=== PATIENT | male | born 1950 | race Caucasian/White ===

== ENCOUNTER 2017-11-01 05:18 | Inpatient (IN) | payer BC, OTHER, SELFPAY ==
[2017-11-01] MEDS ORDERED: LEVALBUTEROL 1.25 MG/3 ML NEB ONE (05:44)
[2017-11-01] MEDS ORDERED: NA CHLORIDE 0.9% 1,000 ML ONE ×2 (05:44→08:32)
[2017-11-01 06:14] LABS: Absolute Lymphocytes (CBC) 0.6 K/uL (0.7-4.9); Absolute Monocytes 1.6 K/uL (0.1-1.3); Absolute Neutrophil 17.3 K/uL (1.8-8.0); Basophils % 0.1 % (0-1.3); Eosinophils % 0.1 % (0-4.4); Hematocrit 46.6 % (39.6-49.0); Lymphocytes % 3.1 % (15.3-44.8); MCH 31.2 pg (27.0-35.0); MCV 95.3 fL (80-100); RBC Red Blood Cell Count 4.89 M/uL (4.33-5.43)
[2017-11-01] MEDS ORDERED: IBUPROFEN 400 MG TAB ONE (06:16)
[2017-11-01 06:31] LABS: BUN Blood Urea Nitrogen 22 mg/dL (7-18); Bicarbonate 23 mmol/L (21-32); CKMB Creatine Kinase MB 4.2 ng/mL (0.3-3.6); Creatine Phosphokinase 615 U/L (39-308); Glucose Level 232 mg/dL (74-106); NT PRO-BNP 1029 pg/mL (<125); Potassium 3.5 mmol/L (3.5-5.1); Sodium Level 139 mmol/L (136-145)
--- NOTE | 2017-11-01 06:33 | ER ---
Nurse's Notes [facility] Name: Hector Burgos Age: 67 yrs Sex: Male : 1950 Arrival Date: 11/01/2017 Time: 05:23 Bed 15 Private MD: Diagnosis: Streptococcal pharyngitis;Pneumonia;Hyperglycemia, unspecified;Sepsis Presentation: 11/01 05:23 Presenting complaint: EMS states: "Patient started feeling dizzy, leaning over the bs1 sink, patient fell and was found on the floor upon arrival, patient denies any LOC or hitting his head, EKG ST 170's, oxygen saturation 90% on room air, temp 104.0.". Transition of care: patient was not received from another setting of care. Onset of symptoms was October 31, 2017. Risk Assessment: Do you want to hurt yourself or someone else? Patient reports no desire to harm self or others. Initial Sepsis Screen: Does the patient meet any 2 criteria? RR > 20 per min. Temp <36.0*C (96.8*F)) or > 38.3*C (100.4*F). HR > 90 bpm. Yes Does the patient have a suspected source of infection? Yes: Skin breakdown/wound. Care prior to arrival: Medication(s) given: Tylenol, 1000 mg, Glucose check: 300 EKG- Sinus Tachycardia. 05:30 Method Of Arrival: EMS: [facility] bs1 05:30 Acuity: JEFF 2 bs1 Historical: - Allergies: 05:36 No Known Allergies; bs1 - Home Meds: 05:36 Niacin Oral [Active]; Lisinopril Oral [Active]; bs1 - PMHx: 05:36 High Cholesterol; Hypertension; prediabetic; bs1 - PSHx: 05:36 None; bs1 - Immunization history:: Adult Immunizations up to date. - Social history:: Smoking status: Patient/guardian denies using tobacco. - Ebola Screening: : Patient negative for fever greater than or equal to 101.5 degrees Fahrenheit, and additional compatible Ebola Virus Disease symptoms Patient denies exposure to infectious person. - Family history:: not pertinent. - Hospitalizations: : No recent hospitalization is reported. Screenin:24 Abuse screen: Denies threats or abuse. Denies injuries from another. Nutritional bs1 screening: No deficits noted. Tuberculosis screening: No symptoms or risk factors identified. Fall Risk None identified. Assessment: 05:25 General: Appears in no apparent distress. uncomfortable, obese, Behavior is calm, bs1 cooperative, appropriate for age, Reports chills for 0-12 hours, fever for 0-12 hours, feeling ill for 0-12 hours. Pain: Denies pain. Neuro: Level of Consciousness is awake, alert, obeys commands, Facial symmetry appears normal, Reports dizziness. 05:25 Cardiovascular: Denies chest pain, Heart tones S1 S2 present Capillary refill < 3 bs1 seconds Patient's skin is warm and dry. Respiratory: Reports shortness of breath at rest on exertion patient states "I feel like its hard to get a deep breath in." Airway is patent Trachea midline Respiratory effort is labored, Respiratory pattern is tachypnea Breath sounds with wheezes bilaterally. GI: No signs and/or symptoms were reported involving the gastrointestinal system. : No signs and/or symptoms were reported regarding the genitourinary system. EENT: No signs and/or symptoms were reported regarding the EENT system. Derm: Derm: bilateral lower legs dry, tight, scaly, red, swollen. Patients left lower leg, skin tears noted. Musculoskeletal: Circulation, motion, and sensation intact. Capillary refill < 3 seconds. 05:30 Reassessment: Administered 3L NC, patients oxygen saturation 88% on room air. bs1 06:30 Reassessment: Patient and/or family updated on plan of care and expected duration. Pain bs1 level reassessed. Patient is alert, oriented x 3, equal unlabored respirations, skin warm/dry/pink. Pending admission to hospital. Dr Vides at bedside, informed patient that he has strep/pneumonia. Patient denies pain at this time. 07:00 General: Appears in no apparent distress. uncomfortable, obese, Behavior is calm, hj cooperative, appropriate for age, Reports feeling ill for 0-12 hours. Pain: Denies pain. Neuro: Level of Consciousness is awake, alert, obeys commands, Facial symmetry appears normal, Reports dizziness. Cardiovascular: Denies chest pain, Heart tones S1 S2 present Capillary refill < 3 seconds Patient's skin is warm and dry. Respiratory: Reports shortness of breath at rest on exertion. GI: Abdomen is obese, Bowel sounds present X 4 quads. Abd is soft and non tender. : No signs and/or symptoms were reported regarding the genitourinary system. EENT: No signs and/or symptoms were reported regarding the EENT system. Derm: bilateral leg dry, tight, scaly, red and swollen;. Musculoskeletal: Circulation, motion, and sensation intact. Capillary refill < 3 seconds. 07:05 Reassessment: Informed hospitalist Dr Ladd that patients lactate is 4.9. Inquired on bs1 fluid resucitation. Dr Ladd to put in another order for NS 1L. Patient currently has an order for a total of 1.5L NS. Patient to get a total of 2.5L NS then maintenance fluids instead of the full 30ml/kg . Patient BNP elevated. Will continue to watch for fluid overload. Report given to HUGO Saenz. informed Dany of current orders. Sepsis sheet initiated. 07:22 Reassessment: documentation on meditech, pt on ER hold, pending ICU placement; hj reinforced pt urine sample, told him we need to straight cath or vogt to get urine sample, per MD order, cant start antibiotics without urine sample; reinforced to pt;. Vital Signs: 05:24 BP 104 / 66; Pulse 122; Resp 25; Pulse Ox 88% on R/A; bs1 05:30 BP 115 / 55; Pulse 122; Resp 24; Temp 102(O); Pulse Ox 92% on 3 lpm NC; Weight 154.22 bs1 kg; Height 5 ft. 11 in. (180.34 cm); Pain 0/10; 05:45 BP 114 / 49; Pulse 118; Resp 26; Pulse Ox 95% on 3 lpm NC; bs1 06:00 BP 111 / 55; Pulse 116; Pulse Ox 94% on 2 lpm NC; bs1 06:30 BP 87 / 60; Pulse 107; Resp 23; Pulse Ox 95% on 3 lpm NC; bs1 06:40 BP 105 / 55; Pulse 102; Resp 24 S; Pulse Ox 96% on 3 lpm NC; bs1 07:00 BP 106 / 57; Pulse 98; Resp 20; Temp 98.8(O); Pulse Ox 98% on 3 lpm NC; Pain 0/10; hj 05:30 Body Mass Index 47.42 (154.22 kg, 180.34 cm) bs1 ED Course: 05:23 Patient arrived in ED. lp1 05:30 Sparkle Fields, RN is Primary Nurse. bs1 05:34 Triage completed. bs1 05:35 Tip Vides MD is Attending Physician. rn 05:55 Initial lab(s) drawn, by me, sent to lab. Maintain EMS IV. Dressing intact. Good blood lp1 return noted. Site clean \\T\\ dry. Gauge \\T\\ site: 20g R AC. 06:00 Inserted saline lock: 22 gauge in left wrist, using aseptic technique. Blood collected. bs1 by me. Flushed with 10cc. tolerated well. 06:15 First set of blood cultures drawn by me, Second set of blood cultures drawn Strep swab bs1 sent to lab. 06:24 Patient has correct armband on for positive identification. Placed in gown. Bed in low bs1 position. Call light in reach. Side rails up X 1. spring up supervisor on. Pulse ox on. NIBP on. 06:25 Arm band placed on left wrist. EKG completed in triage. Results shown to MD. bs1 06:32 Júnior Ladd DO is Hospitalizing Provider. rn 07:04 CT Chest Wo Con In Process Unspecified. EDMS 07:12 CT completed. Patient tolerated procedure well. Patient moved back from CT. kw1 07:25 Chest Single View XRAY In Process Unspecified. EDMS 13:30 EKG done, by lead slot technician. reviewed by Natanael Goodrich MD. at1 21:57 No provider procedures requiring assistance completed. Patient admitted, IV remains in bs1 place. intact. Administered Medications: 05:45 CANCELLED (Duplicate Order): Tylenol 650 mg PO once rn 05:55 Drug: Xopenex 1.25 mg Route: Inhalation; bs1 05:55 Drug: NS 0.9% 1000 ml Route: IV; Rate: 1000 ml; Site: right antecubital; bs1 08:30 Follow up: IV Status: Completed infusion hj 06:13 Not Given (Informed Dr Vides that patient got 1gm tylenol at 0500, verbal order to give bs1 ibuprofen 800mg po x1.): Tylenol 1000 mg PO once 06:17 Drug: Ibuprofen 800 mg Route: PO; bs1 07:12 Follow up: Response: No adverse reaction bs1 06:57 Not Given (Duplicate Order): Rocephin - (cefTRIAXone) 1 grams IVPB once over 30 mins; rn (mix in 50 mL NS) 06:57 Not Given (Duplicate Order): Zithromax 500 mg IVPB once over 1 hrs; mix in 250 mL NS rn 07:30 Drug: NS 0.9% 500 ml Route: IV; Rate: bolus; Site: left hand; hj 09:27 Follow up: IV Status: Completed infusion hj 07:30 Drug: LevaQUIN 750 mg Volume: 150 ml; Route: IVPB; Infused Over: 90 mins; Site: left hj hand; 09:26 Follow up: IV Status: Completed infusion hj 09:15 Drug: vancoMYCIN 1 grams Route: IVPB; Infused Over: 2 hrs; Site: right wrist; hj 09:27 Follow up: IV Status: Infusion continued Point of Care Testing: Blood Glucose: 06:06 Blood Glucose: 209 mg/dL; bs1 Ranges: Outcome: 06:33 Decision to Hospitalize by Provider. rn 21:57 Admitted to ICU accompanied by nurse, accompanied by tech, via wheelchair, room ICU bs1 8, with oxygen, on monitor, with chart, Report called to HUGO Diaz 21:57 Condition: stable 21:57 Instructed on the need for admit, Demonstrated understanding of instructions. 21:59 Patient left the ED. bs1 Signatures: Dispatcher [employer] EDMS Tip Vides MD MD rn Pena, Laura RN RN lp1 Pia Tinoco, otolaryngology teacher EKG Tat1 Dany Harris RN RN hj Wilhelm, Kimberly kw1 Sparkle Fields RN RN bs1 Corrections: (The following items were deleted from the chart) :19 05:30 Presenting complaint: EMS states: "Patient started feeling dizzy, leaning over bs1 the sink, patient fell and was found on the floor upon arrival, patient denies any LOC or hitting his head, EKG ST 170's, oxygen saturation 90% on room air, temp 104.0." bs1 :19 05:30 Transition of care: patient was not received from another setting of care. bs1 bs1 :19 05:30 Onset of symptoms was October 31, 2017 bs bs 05:30 Risk Assessment: Do you want to hurt yourself or someone else? Patient reports no bs1 desire to harm self or others. bs1 06: 05:30 Initial Sepsis Screen: Does the patient meet any 2 criteria? RR > 20 per min. bs1 Temp <36.0*C (96.8*F)) or > 38.3*C (100.4*F). HR > 90 bpm. Yes Does the patient have a suspected source of infection? Yes: Skin breakdown/wound bs1 06: 05:30 Care prior to arrival: Medication(s) given: Tylenol, 1000 mg, Glucose check: 300 bs1 EKG- Sinus Tachycardia bs1 07: 07:05 Reassessment: Informed hospitalist Dr Ladd that patients lactate is 4.9. bs1 Inquired on fluid resucitation. Dr Ladd to put in another order for NS 1L. Patient currently has an order for a total of 1.5L NS. Patient to get a total of 2.5L NS then maintenance fluids instead of the full 30ml/kg . Patient BNP elevated. Will continue to watch for fluid overload. Report given to HUGO Saenz. informed Dany of current orders. bs1 07: 07:00 BP 106 / 57; Pulse 98bpm; Resp 20bpm; Pulse Ox 98% 3 lpm Nasal Cannula; Pain hj 0/10; hj
--- NOTE | 2017-11-01 06:33 | EDPHYS ---
Physician Documentation [facility] Name: Hector Burgos Age: 67 yrs Sex: Male : 1950 Arrival Date: 11/01/2017 Time: 05:23 Bed 15 Private MD: ED Physician Tip Vides HPI: 11/01 05:38 This 67 yrs old Male presents to ER via EMS with complaints of weakness, rn fever, sob. 05:38 The patient has shortness of breath at rest, with light activity. Onset: The rn symptoms/episode began/occurred 2 day(s) ago. Duration: The symptoms are intermittent. The patient's shortness of breath is aggravated by exertion, light activity, supine position, talking, walking. Severity of symptoms: At their worst the symptoms were moderate in the emergency department the symptoms are unchanged. The patient has not experienced similar symptoms in the past. The patient has not recently seen a physician. Reports fever, weakness, sob, cough that began 2 days ago, got worse this AM, got up to go to work, felt lightheaded and fell to ground, no LOC, did not hit head, reports several months of progressive dyspnea, glucose in 300s, no acute skin changes, + chronic skin changes and intermittent edema of legs.. Historical: - Allergies: 05:36 No Known Allergies; bs1 - Home Meds: 05:36 Niacin Oral [Active]; Lisinopril Oral [Active]; bs1 - PMHx: 05:36 High Cholesterol; Hypertension; prediabetic; bs1 - PSHx: 05:36 None; bs1 - Immunization history:: Adult Immunizations up to date. - Social history:: Smoking status: Patient/guardian denies using tobacco. - Ebola Screening: : Patient negative for fever greater than or equal to 101.5 degrees Fahrenheit, and additional compatible Ebola Virus Disease symptoms Patient denies exposure to infectious person. - Family history:: not pertinent. - Hospitalizations: : No recent hospitalization is reported. ROS: 05:41 Constitutional: + fever and chills Eyes: Negative for injury, pain, redness, and manager furniture, ENT: Negative for injury, pain, and discharge, Neck: Negative for injury, pain, and swelling, Cardiovascular: Negative for chest pain, Respiratory: + cough/sob Abdomen/GI: Negative for abdominal pain, nausea, vomiting, diarrhea, and constipation, Back: Negative for injury and pain, MS/Extremity: Negative for injury and deformity, Skin: no acute skin changes Neuro: + generalized weakness, no headache Exam: 05:41 Constitutional: Overweight male, smiling and no acute distress, mild tachypnea rn Head/Face: Normocephalic, atraumatic. Eyes: Pupils equal round and reactive to light, extra-ocular motions intact. Lids and lashes normal. Conjunctiva and sclera are non-icteric and not injected. Cornea within normal limits. Periorbital areas with no swelling, redness, or edema. ENT: dry MM, no stridor Neck: Trachea midline, no thyromegaly or masses palpated, and no cervical lymphadenopathy. Supple, full range of motion without nuchal rigidity, or vertebral point tenderness. No Meningismus. Cardiovascular: tachycardic, regular, no murmur Respiratory: + mild tachypnea with diminished breath sounds at bases, no wheezing, no retractions Abdomen/GI: soft, non-tender Skin: warm, dry, + chronic brawny edema and discoloration of bilateral lower extremities, no signs of cellulitis MS/ Extremity: Pulses equal, no cyanosis. Neurovascular intact. Full, normal range of motion. LLE > circumference than RLE (patient states baseline). Neuro: Awake and alert, GCS 15, oriented to person, place, time, and situation. Cranial nerves II-XII grossly intact. Motor strength 5/5 in all extremities. Sensory grossly intact. Vital Signs: 05:24 BP 104 / 66; Pulse 122; Resp 25; Pulse Ox 88% on R/A; bs1 05:30 BP 115 / 55; Pulse 122; Resp 24; Temp 102(O); Pulse Ox 92% on 3 lpm NC; Weight 154.22 bs1 kg; Height 5 ft. 11 in. (180.34 cm); Pain 0/10; 05:45 BP 114 / 49; Pulse 118; Resp 26; Pulse Ox 95% on 3 lpm NC; bs1 06:00 BP 111 / 55; Pulse 116; Pulse Ox 94% on 2 lpm NC; bs1 06:30 BP 87 / 60; Pulse 107; Resp 23; Pulse Ox 95% on 3 lpm NC; bs1 06:40 BP 105 / 55; Pulse 102; Resp 24 S; Pulse Ox 96% on 3 lpm NC; bs1 07:00 BP 106 / 57; Pulse 98; Resp 20; Temp 98.8(O); Pulse Ox 98% on 3 lpm NC; Pain 0/10; hj 05:30 Body Mass Index 47.42 (154.22 kg, 180.34 cm) bs1 MDM: 05:35 Patient medically screened. rn 06:30 Differential diagnosis: Anemia Anxiety Reaction Bronchitis CHF exacerbation, Myocardial rn Infarction pneumonia, pulmonary edema, reactive airway disease, Sepsis. Data reviewed: vital signs, nurses notes, lab test result(s), EKG, radiologic studies, plain films, and as a result, I will admit patient. Counseling: I had a detailed discussion with the patient and/or guardian regarding: the historical points, exam findings, and any diagnostic results supporting the discharge/admit diagnosis, lab results, radiology results, the need for further work-up and treatment in the hospital. Response to treatment: the patient's symptoms have mildly improved after treatment, and as a result, I will admit patient. Admission orders: after a detailed discussion of the patient's condition and case, the admit orders are written by me. ED course: Pt strep +, pneumonia, will admit to Dr. Ladd, abx ordered, fluids going, feels better, not as lightheaded. Will likely need cardiac w/u and ECHO to evaluate progressive dyspnea on exertion and edema. . 06:34 ED course: Dr. Ladd requests ct chest, ordered without contrast due to mild renal rn insufficiency.. 11/01 05:37 Order name: Urine Culture rn 11/01 05:37 Order name: Urine Microscopic Only rn 11/01 05:37 Order name: Basic Metabolic Panel rn 11/01 05:37 Order name: Blood Culture Adult (2) rn 11/01 05:37 Order name: CBC with Diff rn 11/01 05:37 Order name: Ckmb rn 11/01 05:37 Order name: CPK rn 11/01 05:37 Order name: Lactate; Complete Time: 07:01 rn 11/01 05:37 Order name: Procalcitonin; Complete Time: 06:45 rn 11/01 05:37 Order name: Troponin (emerg Dept Use Only); Complete Time: 06:33 rn 11/01 05:37 Order name: N-Terminal Pro-brain Natriuretic Peptide rn 11/01 05:37 Order name: Ketone, Serum rn 11/01 05:37 Order name: Osmolality, Serum rn 11/01 05:37 Order name: Strep; Complete Time: 06:17 rn 11/01 05:38 Order name: Urine Culture [facility] 11/01 07:01 Order name: Basic Metabolic Panel [facility] 11/01 07:01 Order name: Basic Metabolic Panel [facility] 11/01 07:01 Order name: Basic Metabolic Panel [facility] 11/01 07:01 Order name: Basic Metabolic Panel [facility] 11/01 07:01 Order name: Basic Metabolic Panel [facility] 11/01 07:01 Order name: Basic Metabolic Panel [facility] 11/01 07:01 Order name: CKMB Creatine Kinase MB [facility] 11/01 07:01 Order name: CKMB Creatine Kinase MB [facility] 11/01 07:01 Order name: CKMB Creatine Kinase MB [facility] 11/01 07:01 Order name: Creatine Phosphokinase [facility] 11/01 07:01 Order name: Creatine Phosphokinase [facility] 11/01 07:01 Order name: Creatine Phosphokinase [facility] 11/01 07:01 Order name: Lipid Profile [facility] 11/01 07:01 Order name: Lipid Profile [facility] 11/01 07:01 Order name: Magnesium [facility] 11/01 05:37 Order name: Chest Single View XRAY rn 11/01 05:37 Order name: Accucheck; Complete Time: 06:08 rn 11/01 05:37 Order name: Cardiac monitoring; Complete Time: 06:09 rn 11/01 05:37 Order name: EKG - Nurse/Tech; Complete Time: 07:00 rn 11/01 05:37 Order name: IV Saline Lock - Large Bore; Complete Time: 06:09 rn 11/01 06:34 Order name: CT Chest Wo Con rn 11/01 07:01 Order name: Sputum Culture [facility] 11/01 07:02 Order name: CONS Pharmacy Consult [facility] 11/01 07:02 Order name: CONS Physician Consult [facility] 11/01 07:02 Order name: CONS Physician Consult [facility] 11/01 07:02 Order name: Respiratory Therapy Consult [facility] 11/01 07:02 Order name: Consistent Carb (ADA) 2000 Henri [facility] 11/01 07:02 Order name: Echo with Doppler [facility] 11/01 07:02 Order name: Hemoglobin A1c [facility] 11/01 07:02 Order name: Troponin I [facility] 11/01 07:02 Order name: Troponin I [facility] 11/01 07:49 Order name: Urine Dipstick--Ancillary (enter results) bd 11/01 08:12 Order name: Urine Dipstick-Ancillary [facility] 11/01 08:21 Order name: Lactate iw 11/01 08:26 Order name: CBC Smear Scan [facility] 11/01 09:09 Order name: Lactate [facility] 11/01 16:54 Order name: Glucose, Ancillary Testing [facility] 11/01 05:37 Order name: Labs collected and sent; Complete Time: 06:09 rn 11/01 05:37 Order name: O2 Per Protocol; Complete Time: 06:09 rn 11/01 05:37 Order name: O2 Sat Monitoring; Complete Time: 06:09 rn 11/01 05:37 Order name: Urine Dipstick-Ancillary (obtain specimen); Complete Time: 07:54 rn Administered Medications: 05:45 CANCELLED (Duplicate Order): Tylenol 650 mg PO once rn 05:55 Drug: Xopenex 1.25 mg Route: Inhalation; bs1 05:55 Drug: NS 0.9% 1000 ml Route: IV; Rate: 1000 ml; Site: right antecubital; bs1 08:30 Follow up: IV Status: Completed infusion hj 06:13 Not Given (Informed Dr Vides that patient got 1gm tylenol at 0500, verbal order to give bs1 ibuprofen 800mg po x1.): Tylenol 1000 mg PO once 06:17 Drug: Ibuprofen 800 mg Route: PO; bs1 07:12 Follow up: Response: No adverse reaction bs1 06:57 Not Given (Duplicate Order): Rocephin - (cefTRIAXone) 1 grams IVPB once over 30 mins; rn (mix in 50 mL NS) 06:57 Not Given (Duplicate Order): Zithromax 500 mg IVPB once over 1 hrs; mix in 250 mL NS rn 07:30 Drug: NS 0.9% 500 ml Route: IV; Rate: bolus; Site: left hand; hj 09:27 Follow up: IV Status: Completed infusion hj 07:30 Drug: LevaQUIN 750 mg Volume: 150 ml; Route: IVPB; Infused Over: 90 mins; Site: left hj hand; 09:26 Follow up: IV Status: Completed infusion hj 09:15 Drug: vancoMYCIN 1 grams Route: IVPB; Infused Over: 2 hrs; Site: right wrist; 09:27 Follow up: IV Status: Infusion continued Point of Care Testing: Blood Glucose: 06:06 Blood Glucose: 209 mg/dL; bs1 Ranges: Critical Glucose Levels:Adult <50 mg/dl or >400 mg/dl <40 mg/dl or >180 mg/dl Disposition: 06:30 Critical Care:. rn Disposition: 11/01/17 06:33 Hospitalization ordered by Júnior Ladd for Inpatient Admission. Preliminary diagnosis are Streptococcal pharyngitis, Pneumonia, Hyperglycemia, unspecified, Sepsis. - Bed requested for Intensive Care Unit. - Status is Inpatient Admission. bs1 - Condition is Fair. - Problem is new. - Symptoms have improved. UTI on Admission? No Critical care time excluding procedures: 06:30 Critical care time: Bedside Care: 25 minutes, Consultation: 5 minutes, Family rn Intervention: 5 minutes. Total time: 35 minutes Signatures: Dispatcher [employer] [facility] Joanne Cobb Felicia, RN RN Tip Vides MD MD rn Joaquin, Henry, RN RN Sparkle Feilds, HUGO RN bs1 Corrections: (The following items were deleted from the chart) 05:45 05:45 Tylenol 650 mg PO once ordered. rn rn 07:27 06:33 Hospitalization Ordered by Júnior Ladd DO for Inpatient Admission. Preliminary bd diagnosis is Streptococcal pharyngitis; Pneumonia; Hyperglycemia, unspecified; Sepsis. Bed requested for Telemetry/MedSurg (Inpatient). Status is Inpatient Admission. Condition is Fair. Problem is new. Symptoms have improved. UTI on Admission? No. rn 21:29 07:27 11/01/2017 06:33 Hospitalization Ordered by Júnior Ladd DO for Inpatient fc Admission. Preliminary diagnosis is Streptococcal pharyngitis; Pneumonia; Hyperglycemia, unspecified; Sepsis. Bed requested for [facility] ER HOLD. Status is Inpatient Admission. Condition is Fair. Problem is new. Symptoms have improved. UTI on Admission? No. bd 21:59 21:29 11/01/2017 06:33 Hospitalization Ordered by Júnior Ladd DO for Inpatient bs1 Admission. Preliminary diagnosis is Streptococcal pharyngitis; Pneumonia; Hyperglycemia, unspecified; Sepsis. Bed requested for Intensive Care Unit. Status is Inpatient Admission. Condition is Fair. Problem is new. Symptoms have improved. UTI on Admission? No. fc
[2017-11-01] MEDS ORDERED: TRAMADOL HCL 50 MG TAB PO PRN (06:47)
[2017-11-01] MEDS ORDERED: MORPHINE 2 MG/ML SYR IV PRN (06:47)
[2017-11-01] MEDS: Levofloxacin500mg IV 500 MG/100 ML BAG IV SCH (07:00)
[2017-11-01] MEDS: NACHLORIDE 0.45% 1,000 ML IV SCH ×3 (07:00→22:40)
[2017-11-01] MEDS ORDERED: NA CHLORIDE 0.9% 1,000 ML IV SCH (07:00)
[2017-11-01] MEDS ORDERED: Levofloxacin 750mg IV 750 MG/150 ML BAG IV ONE (07:10)
[2017-11-01] MEDS ORDERED: VANCOMYCIN 1 GM/250 ML BAG ONE ×2 (07:10→11:27)
[2017-11-01] MEDS ORDERED: NA CHLORIDE 0.9% 500 ML ONE (07:11)
--- NOTE | 2017-11-01 07:21 | RAD REPORT ---
EXAM DESCRIPTION: CT - Thorax Wo Con - 11/01/2017 7:10 am CLINICAL HISTORY: Dyspnea COMPARISON: Chest films same date TECHNIQUE: Axial 5 mm thick images of the chest were obtained without IV contrast. All CT scans are performed using dose optimization technique as appropriate and may include automated exposure control or mA/KV adjustment according to patient size. FINDINGS: No focal mass or infiltrate. Minimal scarring changes are present. No pleural thickening o r pleural effusion. No pneumothorax. No abnormal mediastinal or hilar masses or lymphadenopathy seen. No gross aortic or pulmonary artery finding suspected. Assessment is limited in the absence of IV contrast. No chest wall mass or abnormal axillary lymphadenopathy. IMPRESSION: No mass, infiltrate or focal lung parenchymal process. No significant interstitial edema or infiltrate on CT criteria.
[2017-11-01] MEDS: INSULIN -REGULAR HUMAN 50 UNIT/0.5 ML ML SQ SCH ×4 (07:30→21:00)
--- NOTE | 2017-11-01 07:47 | RAD REPORT ---
EXAM DESCRIPTION: RAD - Chest Single View - 11/01/2017 7:25 am CLINICAL HISTORY: Dyspnea COMPARISON: None. TECHNIQUE: AP portable chest image was obtained 0607 hours . FINDINGS: Motion degradation is present. No peripheral mass or consolidation. Heart size is upper no rmal. Pulmonary vasculature is mildly prominent. No measurable pleural effusion and no pneumothorax. No gross bony abnormality seen. No acute aortic findings suspected. IMPRESSION: Motion degraded study showing no peripheral mass or consolidation. No significant failure or volume overload at this time.
[2017-11-01 08:12] LABS: Urine Blood 3+ (NEG); Urine Glucose TRACE (NEG); Urine Protein 3+ (NEG); Urine pH 5.5 (5.0-7.0)
[2017-11-01 08:17] LABS: Urine Bacteria <20 /HPF (NONE SEEN); Urine RBC <5 /HPF (NONE SEEN)
[2017-11-01 08:18] LABS: Urine Amorphous Sediment 3+ /HPF (NONE SEEN); Urine Culture Reflex Order NOT NEEDED
[2017-11-01 08:26] LABS: Blood Morphology Comment NOT SEEN (NOT SEEN); Platelet Estimate ADEQ; Urine White Blood Cell Casts OK
[2017-11-01] MEDS ORDERED: ASPIRIN 81 MG CHEWABLE TABLET ONE (08:31)
[2017-11-01] MEDS ORDERED: NACHLORIDE 0.45% 1,000 ML IV ONE ×2 (08:32→16:41)
[2017-11-01] MEDS: ASPIRIN EC 81 MG TAB PO SCH (08:33)
[2017-11-01] MEDS ORDERED: ENOXAPARIN 40 MG/0.4 ML SQ SCH (09:00)
[2017-11-01] MEDS: VANCOMYCIN/NS 1 gm 1 GM/250 ML BAG IV ONE ×2 (09:25→11:26)
--- NOTE | 2017-11-01 09:38 | EKG ---
Test Date: 2017-11-01 Test Time: 06:06:35 Shell Mold Bonder: FLOR MEASUREMENT RESULTS: Intervals: Rate: 117 PA: QRSD: 92 QT: 320 QTc: 446 [place]: P: 50 PA: QRS: 130 T: 44 INTERPRETIVE STATEMENTS: Sinus tachycardia Right axis deviation Incomplete right bundle branch block Abnormal ECG Compared to ECG 02/20/1998 07:16:00 Incomplete right bundle-branch block now present Sinus rhythm no longer present Electronically Signed On 11-01-17 09:37:46 CDT by Haroldo Parkinson
--- NOTE | 2017-11-01 10:24 | P.HP ---
Certification for Inpatient Patient admitted to: Inpatient With expected LOS: >2 Midnights Patient will require the following post-hospital care: None Practitioner: I am a practitioner with admitting privileges, knowledge of patient current condition, hospital course, and medical plan of care. Services: Services provided to patient in accordance with Admission requirements found in Title 42 Section 412.3 of the Code of Federal Regulations Patient History Date of Service: 11/01/17 Primary Care Provider: Dr. Da Silva Reason for admission: Fevers, shortness of breath History of Present Illness: 67-year-old male presented to the ER with fever, shortness of breath. Patient reports fever, chills and shortness of breath since last night. Today he felt very weak and had no energy. He denied any nausea, vomiting, diarrhea or chest pain. He is still extremely bad. Patient tells lightheaded and dizzy fall but no syncopal episode was noted. Patient came to the ER for evaluation. In the ER patient found have low blood pressures. White count elevated at 19.6. Pro calcitonin unremarkable but lactic acid was 4.9. Sodium 139, potassium 3.5, BUN 22, 21.6 with a GFR 43. Glucose 232. CK of 615. CK MB 4.2. Troponin 0.18 with a BNP of 1028. Chest x-ray appeared to show pneumonia. CT scan showed no evidence of pneumonia. He was positive for strep. Patient admitted for sepsis. When I evaluated patient in ER, blood pressures were low. Patient required oxygen due to hypoxia. Patient did not appear in any respiratory failure. Patient is stable at this time. Patient giving IV fluid boluses. Patient with history of hypertension, diabetes, hyperlipidemia. He is morbidly obese. He reports that he no longer drinks alcohol. He does not smoke. Allergies No Known Allergies Allergy (Verified 11/01/17 07:27) Home medications list reviewed: Yes Home Medications: Amlodipine [Norvasc] 5 mg PO DAILY 11/01/17 Fenofibrate,Micronized [Fenofibrate] 1 tab PO DAILY 11/01/17 Lisinopril/Hydrochlorothiazide [Zestoretic 20-25 mg Tablet] 1 tab PO DAILY 11/01 Metoprolol Tartrate [Lopressor] 50 mg PO DAILY 11/01/17 Niacin 500 mg PO BEDTIME 11/01/17 Pioglitazone HCl/Metformin HCl [Actoplus Met 15 mg-850 mg Tab] 1 each PO BID - Past Medical/Surgical History Has patient received pneumonia vaccine in the past: Yes Diabetic: Yes -: Hyperlipidemia -: HTN -: Diabetes mellitus type 2 -: Tonsillectomy Psychosocial/ Personal History: Patient is . He has 2 children. 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 - Family History Father -: Hypertension, Diabetes - Social History Smoking Status: Never smoker Alcohol use: No CD- Drugs: No Caffeine use: Yes Place of Residence: Home Review of Systems General: Fever, Chills, Weakness, Malaise, As per HPI Eyes: Unremarkable ENT: Unremarkable Respiratory: Unremarkable Cardiovascular: Edema, Light Headedness, As per HPI Gastrointestinal: Unremarkable Genitourinary: Unremarkable Musculoskeletal: Pedal edema, As per HPI Integumentary: Unremarkable Neurological: As per HPI Lymphatics: Unremarkable Physical Examination - Vital Signs Temperature: 98.6 F Blood Pressure: 109/56 Pulse: 79 Respirations: 18 Pulse Ox (%): 97 - Physical Exam General: Alert, In no apparent distress, Oriented x3, Cooperative HEENT: Atraumatic, Normocephalic, PERRLA, Other (Dry mucous membranes) Neck: Supple, No Thyromegaly Respiratory: Clear to auscultation bilaterally, Normal air movement Cardiovascular: Normal pulses, Regular rate/rhythm Gastrointestinal: Normal bowel sounds, Soft and benign, Non-distended, No tenderness, No masses, No rebound, No guarding, Other (Morbid obesity) Musculoskeletal: Other (Edema to the lower extremities bilateral about 1 to 2+ pitting edema, chronic venous changes noted.) Integumentary: No erythema, No warmth, No cyanosis, Tenderness/swelling, Other ( Chronic venous stasis noted to the lower extremities. Edema noted.) Neurological: Normal speech, Normal strength at 5/5 x4 extr, Normal tone, Normal affect - Studies Laboratory Data (last 24 hrs) 11/01/17 06:00: WBC 19.6 H, Hgb 15.3, Hct 46.6, Plt Count 206 11/01/17 06:00: Sodium 139, Potassium 3.5, BUN 22 H, Creatinine 1.60 H, Glucose 232 H Microbiology Data (last 24 hrs): 11/01/17 06:00 Throat Group A Streptococcus Rapid Screen - Final Assessment and Plan - Problems (Diagnosis) (1) Severe sepsis Current Visit: Yes Status: Acute (2) Streptococcus infection, group A Current Visit: Yes Status: Acute Plan: Patient with positive group A Streptococcus infection. Patient with severe sepsis likely bacteremia. Will start IV Levaquin and vancomycin. Patient to be given IV fluid boluses. Will transition to maintenance fluid. We to monitor closely. Patient will be admitted to the ICU. CT scan unremarkable which is very unusual as the patient was hypoxic. Will consult cardiology and pulmonology to further assess. I will turn the service over to Dr. Dobbins tomorrow. I go over plan of care with him. (3) Pneumonia Current Visit: Yes Status: Suspected Plan: CT scan unremarkable. Patient with group A streptococcus infection. Continue as above. Patient with sepsis. Qualifiers: Laterality: bilateral Lung location: lower lobe of lung (4) Hypoxia Current Visit: Yes Status: Acute Plan: Patient with hypoxia. Continue as above. Maintain sats above 90%. (5) CHF (congestive heart failure) Current Visit: Yes Status: Suspected Plan: Will check echocardiogram. Patient appears volume depleted due to hypotension. Cardiology consulted. Qualifiers: Heart failure type: unspecified Heart failure chronicity: unspecified Qualified Code(s): I50.9 - Heart failure, unspecified (6) Hypertension Current Visit: Yes Status: Chronic Plan: Will hold blood pressure medication due to hypertension and sepsis. Will monitor closely. (7) Diabetes mellitus Current Visit: Yes Status: Chronic Plan: Will check A1c. Will start sliding scale. Will monitor and adjust appropriately. Qualifiers: Diabetes mellitus type: type 2 Diabetes mellitus intermediate insulin use: without spindle carver use Diabetes mellitus complication status: with other specified complication Qualified Code(s): E11.69 - Type 2 diabetes mellitus with other specified complication (8) Elevated troponin Current Visit: Yes Status: Acute Plan: Elevated troponin likely from sepsis. Will check echocardiogram. Will monitor cardiac enzymes and telemetry. Cardiology consulted. Patient will likely need cardiac workup once infection is under control. This may occur as an outpatient. (9) CAD (coronary artery disease) Current Visit: Yes Status: Suspected Plan: Patient will need cardiac evaluation once sepsis under control. (10) Acute renal injury due to sepsis Current Visit: Yes Status: Acute Plan: Continue with IV fluids. Will monitor closely. May need to assess for possible chronic renal disease. Discharge Plan: Home Plan to discharge in: Greater than 2 days - Advance Directives Does patient have a Living Will: Yes Does patient have a Durable POA for Healthcare: Yes - Code Status/Comfort Care Code Status Assessed: Yes Time Spent Managing Pts Care (In Minutes): 65
[2017-11-01 15:20] LABS: Creatine Phosphokinase > 14000 U/L (39-308)
[2017-11-01] MEDS ORDERED: ENOXAPARIN 30 MG/0.3 ML SQ SCH (17:00)
--- NOTE | 2017-11-01 19:13 | CON ---
Chief Complaint: Low blood pressure. History Of Present Illness: Mr. Burgos started having chills yesterday. This morning, he had worse c hills. He was feeling ill in general, stood up and became lightheaded and dizzy and fell at some poi nt, does not think he ever lost consciousness. When he arrived at the emergency room, he had a tempe rature of a 104, and he had a blood pressure of 86/50, and it is believed he has sepsis. I am asked to see him because he has an elevated troponin at 0.18. Mr. Burgos has not had myocardial infarction or stroke or any vascular disease. Home Medications: Actos, metformin, metoprolol, lisinopril, hydrochlorothiazide, niacin, fenofibrate , and amlodipine. He has chronic venous insufficiency with a lot of ulcerated lesions on his left foot, chronic edema o therwise. Allergies: HE HAS NO ALLERGIES. HE DOES NOT USE TOBACCO. ALCOHOL USE MINIMAL. NO ILLEGAL DRUGS. Physical Examination: Vital Signs: 5 feet 11, 339 pounds. HEENT: Unremarkable. Lungs: Clear. Heart: Within normal limits. Abdomen: Soft. Extremities: Cellulitis on the left leg. Laboratory Data: We discussed the troponin. His white blood cell count is 19,600, left shift with 8 8.7% neutrophils, normal platelet count. Impression: The patient's elevated troponin is most likely from septicemia and that is most likely f rom cellulitis, although it is possible there is something else. He has group A strep growing at his throat and does not actually have a sore throat. Urine and blood cultures are pending. He has a lo t of white blood cells in his urine, so it may be a combination of a urinary tract infection and cell ulitis. Once his infection is cleared, I think it would be walter for us to have him do a pharmacologi c nuclear stress and echo to see if there is any other evidence of CAD other than a mildly elevated t roponin during septicemia. SH/MODL Voice ID: [id number] Report ID: [id number]
[2017-11-01] MEDS ORDERED: ATORVASTATIN 40 MG TAB PO SCH (21:00)
[2017-11-01 21:58] LABS: Creatine Phosphokinase > 14000 U/L (39-308)
[2017-11-01 21:59] LABS: CKMB Creatine Kinase MB 77.3 ng/mL (0.3-3.6)
[2017-11-01] MEDS: ACETAMINOPHEN 500 MG TAB PO PRN (22:29)
[2017-11-02] MEDS ORDERED: HYDROCORTISONE SUC 100 MG INJ IV ONE (01:23)
[2017-11-02] MEDS ORDERED: D5W 1,000 ML IV ONE (01:42)
[2017-11-02] MEDS ORDERED: D5W 1,000 ML with NA BICARB 8.4% 50 MEQ IV SCH ×4 (02:00→09:00)
[2017-11-02 04:51] LABS: Barbiturates NEGATIVE (NEGATIVE); Benzodiazepines NEGATIVE (NEGATIVE); Cocaine NEGATIVE (NEGATIVE); METHAMPHETAM NEGATIVE (NEGATIVE); Methadone NEGATIVE (NEGATIVE); Opiates NEGATIVE (NEGATIVE); Phencyclidine NEGATIVE (NEGATIVE); THC Cannibis NEGATIVE (NEGATIVE)
[2017-11-02 06:09] LABS: Absolute Lymphocytes (CBC) 0.9 K/uL (0.7-4.9); Absolute Monocytes 1.3 K/uL (0.1-1.3); Absolute Neutrophil 11.7 K/uL (1.8-8.0); Basophils % 0.4 % (0-1.3); Eosinophils % 0.2 % (0-4.4); Hematocrit 44.6 % (39.6-49.0); Lymphocytes % 6.1 % (15.3-44.8); MCH 31.6 pg (27.0-35.0); MCV 94.2 fL (80-100); MPV 9.4 fL (7.6-11.3); Monocytes % 9.1 % (3.3-12.3); RBC Red Blood Cell Count 4.73 M/uL (4.33-5.43)
--- NOTE | 2017-11-02 06:34 | P.INFCA ---
Sepsis Focused Assessment - Sepsis Screen Result Severe Sepsis: Negative Septic Shock: Negative - Evaluation Current stage of sepsis: Ruled out Reason for ruling out sepsis: Patient hemodynamically stable - Vital Signs Reviewed: Yes Temperature: 98 F Heart rate: 83 Blood Pressure: 135/77 Respiratory Rate: 22 O2 Sat by Pulse Oximetry: 94 - Examination Date exam was performed: 11/01/17 Time exam was performed: 20:00 Heart: Regular rate/rhythm Lungs: Clear bilaterally Peripheral pulses: 2+ Slightly diminished Peripheral pulse location: Radial Capillary refill: <2 Seconds Skin examination: Normal turgor, Other (Abdominal exam he does have some bruising and lower extremity with hyperkeratosis) Comments: PATIENT DID HAVE RHABDOMYOLYSIS. I STARTED PATIENT ON BICARB DRIP.
[2017-11-02 06:43] LABS: Magnesium 1.8 mg/dL (1.8-2.4); Potassium 4.3 mmol/L (3.5-5.1); Thyroid Stimulating Hormone 1.43 uIU/mL (0.36-3.74)
--- NOTE | 2017-11-02 06:59 | RAD REPORT ---
EXAM DESCRIPTION: RAD - Chest Single View - 11/02/2017 6:41 am CLINICAL HISTORY: follow up pneumonia<Reason For Exam>follow up pneumonia COMPARISON: Chest Single View dated 11/01/2017; Thorax Wo Con dated 11/01/2017<Comparisons> TECHNIQUE: AP portable chest image was obtained 0627 hours . FINDINGS: Mild prominence of the lung markings has not changed. No new consolidation or mass identif iable. Heart and vasculature are normal. No measurable pleural effusion and no pneumothorax. No gross bony abnormality seen. No acute aortic findings suspected. IMPRESSION: No acute cardiopulmonary process. No new or progressive finding.
[2017-11-02] MEDS: INSULIN -REGULAR HUMAN 50 UNIT/0.5 ML ML SQ SCH ×4 (07:30→20:15)
[2017-11-02] MEDS ORDERED: MAGNESIUM SULFATE 1 gm IVPB 1 GM/100 ML BAG IV ONE ×2 (07:34→21:29)
[2017-11-02] MEDS: PANTOPRAZOLE 40MG TABLET PO SCH (07:53)
[2017-11-02] MEDS: Levofloxacin500mg IV 500 MG/100 ML BAG IV SCH (08:18)
[2017-11-02] MEDS: ASPIRIN EC 81 MG TAB PO SCH (08:18)
[2017-11-02] MEDS ORDERED: NA CHLORIDE 0.9% 500 ML IV ONE (08:34)
--- NOTE | 2017-11-02 08:38 | P.PN ---
Date of Service: 11/02/17 We stopped statin secondary to elevated CPK. Started bicarb drip and will monitor labs closely. Monitor renal function closely. Will need to alkalinize serum and urine. Monitor CPK and renal function closely. May need nephrology consultation
[2017-11-02] MEDS ORDERED: ENOXAPARIN 40 MG/0.4 ML SQ SCH (09:00)
[2017-11-02] MEDS ORDERED: VANCOMYCIN 2 GM in NA CHLORIDE 0.9% 500 ML IVPB SCH (09:00)
--- NOTE | 2017-11-02 11:10 | P.PN ---
Subjective Date of Service: 11/02/17 Primary Care Provider: Dr. Da Silva Chief Complaint: Fevers, shortness of breath The patient feels better, no fever, no SOB, no nausea or vomiting, he is afebrile. Physical Examination - Vital Signs Temperature: 98 F Blood Pressure: 135/77 Pulse: 83 Respirations: 22 Pulse Ox (%): 94 - Physical Exam General: Alert, In no apparent distress Respiratory: Clear to auscultation bilaterally, Normal air movement Cardiovascular: Regular rate/rhythm, Normal S1 S2 Gastrointestinal: Normal bowel sounds, No tenderness Musculoskeletal: No tenderness Integumentary: Skin breakdown, Skin lesion (left leg) Neurological: Normal speech, Normal tone, Normal affect Lymphatics: No axilla or inguinal lymphadenopathy - Studies Microbiology Data (last 24 hrs): 11/01/17 06:00 Throat Group A Streptococcus Rapid Screen - Final Assessment And Plan - Current Problems (Diagnosis) (1) Rhabdomyolysis Current Visit: Yes Status: Acute Qualifiers: Rhabdomyolysis type: traumatic Encounter type: initial encounter Qualified Code(s): T79.6XXA - Traumatic ischemia of muscle, initial encounter (2) Acute renal injury due to sepsis Current Visit: Yes Status: Acute (3) Severe sepsis Current Visit: Yes Status: Acute (4) Streptococcus infection, group A Current Visit: Yes Status: Acute (5) Diabetes mellitus Current Visit: Yes Status: Chronic Qualifiers: Diabetes mellitus type: type 2 Diabetes mellitus rotary adjuster insulin use: without usp use Diabetes mellitus complication status: with other specified complication Qualified Code(s): E11.69 - Type 2 diabetes mellitus with other specified complication (6) CAD (coronary artery disease) Current Visit: Yes Status: Suspected Qualifiers: Coronary Disease-Associated Artery/Lesion type: [place] artery [place] vs. transplanted heart: [place] heart Associated angina: without angina Qualified Code(s): I25.10 - Atherosclerotic heart disease of [place] coronary artery without angina pectoris - Plan 1) Severe sepsis: Strep A rapid screen was positive. Blood cultures remain negative at the moment. CXR shows no acute infiltrate, he has had some productive cough with clear secretions. So far no clear source of infection. He remain afebrile. Continue empiric treatment with Vancomycin and Levaquin. #2 rhabdomyolysis: CK continue increasing. He is on Bicarbonate drip, IV fluids. Will consult Eligibility Consultant since renal function is getting worse as well. #3 acute renal injury: as above, continue IV fluids and consult Nephrology. #4 Left leg desquamative wound: consult wound care. plan: will transfer the patient to medical floor. - Code Status/Comfort Care Code Status Assessed: Yes Code Status: Full Code
--- NOTE | 2017-11-02 12:11 | P.CNS ---
Date of Consult: 11/02/17 Primary Care Provider: Dr. Da Silva Chief Complaint: Fever and loss of balance History of Present Illness: Patient is 67 years of age has sudden onset of chills and he lost his balance fell down and was admitted from the emergency room with a diagnosis of sepsis he denies any pulmonary or GI complaints patient has chronic lymphedema of lower extremity left worse than the right that some more discomfort in the left leg with chronic induration and redness feels better denies any abdominal complaints no prior history of cardiopulmonary problems he goes for a regular physical every year Allergies No Known Allergies Allergy (Verified 11/01/17 07:27) Home Medications: Amlodipine [Norvasc] 5 mg PO DAILY 11/01/17 Fenofibrate,Micronized [Fenofibrate] 1 tab PO DAILY 11/01/17 Lisinopril/Hydrochlorothiazide [Zestoretic 20-25 mg Tablet] 1 tab PO DAILY 11/01 Metoprolol Tartrate [Lopressor] 50 mg PO DAILY 11/01/17 Niacin 500 mg PO BEDTIME 11/01/17 Pioglitazone HCl/Metformin HCl [Actoplus Met 15 mg-850 mg Tab] 1 each PO BID - Past Medical/Surgical History Diabetic: Yes -: Hyperlipidemia -: HTN -: Diabetes mellitus type 2 -: Tonsillectomy Psychosocial/ Personal History: Patient is . He has 2 children. 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 - Family History Father Medical History: Hypertension, Diabetes - Social History Alcohol use: No CD- Drugs: No Caffeine use: Yes Place of Residence: Home Review of Systems 10-point ROS is otherwise unremarkable General: Weakness Physical Examination Temp Pulse Resp BP Pulse Ox 98 F 83 22 H 135/77 94 11/02/17 11:15 11/02/17 11:15 11/02/17 11:15 11/02/17 11:15 11/02/17 11:15 General: Alert, Oriented x3 HEENT: Atraumatic Neck: Supple Respiratory: Clear to auscultation bilaterally Cardiovascular: Normal S1 S2, Edema (Bilateral edema left worse in the right chronic eczematous changes worse on the left leg with some redness) Gastrointestinal: Normal bowel sounds, Soft and benign Musculoskeletal: No clubbing, No swelling - Problems (1) Sepsis Current Visit: Yes Status: Acute Plan: Patient is 67 years of age admitted with sudden onset of fever a loss of balance fall cultures are so far negative he appears to be septic probably from the underlying cellulitis continue with IV antibiotics is white count is elevated pro calcitonin is borderline normal renal function is worse creatinine 3.0 white count elevated not declining the chest CT scan is negative no evidence of pneumonia patient's CPK is elevated thyroid function test is normal patient's vital signs in oxygenation satisfactory patient probably has underlying diabetic nephropathy blood cultures so far negative group A streptococcal screen positive Qualifiers: Sepsis type: sepsis due to unspecified organism Qualified Code(s): A41.9 - Sepsis, unspecified organism (2) Sleep apnea Current Visit: Yes Status: Acute Plan: I suspect that he has obstructive sleep apnea and will need outpatient sleep study complains of some snoring and excessive daytime somnolence
--- NOTE | 2017-11-02 12:46 | ECHO ---
HEIGHT: 5 ft 11 in WEIGHT: 339 lb 12.07 oz DATE OF STUDY: 11/02/[address]: Haroldo Parkinson MD 2-DIMENSIONAL: YES M.MODE: YES DOPPLER: YES COLOR FLOW: YES TDS: YES PORTABLE: NO DEFINITY: NO BUBBLE STUDY: NO DIAGNOSIS: HYPOTENSION CARDIAC HISTORY: CATHERIZATION: NO SURGERY: NO PROSTHETIC VALVE: NO PACEMAKER: NO MEASUREMENTS (cm) DIASTOLIC (NORMALS) SYSTOLIC (NORMALS) IVSd 1.2 (0.6-1.2) LA Diam 4.4 (1.9-4.0) LVEF 73% LVIDd 4.7 (3.5-5.7) LVIDs 2.7 (2.0-3.5) %FS 42% LVPWd 1.2 (0.6-1.2) Ao Diam 3.1 (2.0-3.7) 2 DIMENSIONAL ASSESSMENT: RIGHT ATRIUM: NORMAL LEFT ATRIUM: NORMAL RIGHT VENTRICLE: NORMAL LEFT VENTRICLE: NORMAL TRICUSPID VALVE: NORMAL MITRAL VALVE: NORMAL PULMONIC VALVE: NORMAL AORTIC VALVE: NORMAL PERICARDIAL EFFUSION: NONE AORTIC ROOT: NORMAL LEFT VENTRICULAR WALL MOTION: NORMAL. DOPPLER/COLOR FLOW: NORMAL. COMMENTS: NORMAL 2D ECHO WITH DOPPLER. NO WALL MOTION ABNORMALITY. NO EFFUSION. TECHNOLOGIST: ALISA PUGH
[2017-11-02] MEDS: CEFTRIAXONE/SWI 1gm 1 GM/10 ML SYR IV SCH (13:31)
--- NOTE | 2017-11-02 14:37 | RAD REPORT ---
EXAM DESCRIPTION: US - Renal Ultrasound-Complete - 11/02/2017 2:12 pm CLINICAL HISTORY: ACUTE RENAL FAILURE COMPARISON: No comparisons FINDINGS: Both kidneys are normal in size, shape and echotexture. The right kidney measures 13.7 x 7.6 x 7.0 cm. No hydronephrosis, focal mass or perinephric fluid. The left kidney measures 13.5 x 7.2 x 6.5 cm. No hydronephrosis, focal mass or perinephric fluid. The urinary bladder is incompletely distended without gross abnormality seen. IMPRESSION: Unremarkable renal sonogram.
[2017-11-02] MEDS: NACHLORIDE 0.45% 1,000 ML with NA BICARB 8.4% 75 MEQ IV SCH ×4 (14:40→22:10)
[2017-11-02 15:43] LABS: Urine Appearance CLOUDY; Urine Bilirubin NEGATIVE (NEG); Urine Blood 3+ (NEG); Urine Color YELLOW; Urine Glucose NEGATIVE (NEG); Urine Protein 1+ (NEG); Urine Specific Gravity <=1.005 (1.005-1.030); Urine Urobilinogen 0.2 mg/dL (0.2-1.0)
[2017-11-02 15:49] LABS: Urine Protein/Creatinine Ratio 1.36 ratio (<0.15)
[2017-11-02 15:51] LABS: Urine Microscopic Reflex ORDER UMIC
[2017-11-02 16:02] LABS: Urine Amorphous Sediment 1+ /HPF (NONE SEEN); Urine Bacteria <20 /HPF (NONE SEEN); Urine Culture Reflex Order NOT NEEDED
[2017-11-02] MEDS: ONDANSETRON 4 MG/2 ML VIAL IV PRN ×2 (16:11→20:03)
[2017-11-02] MEDS ORDERED: ONDANSETRON 4 MG/2 ML VIAL IV ONE (19:48)
[2017-11-02] MEDS ORDERED: METOCLOPRAMIDE 10 MG/2mL INJ IV SCH (22:00)
[2017-11-02 22:54] LABS: Absolute Lymphocytes (CBC) 0.9 K/uL (0.7-4.9); Absolute Neutrophil 11.3 K/uL (1.8-8.0); Basophils % 0.3 % (0-1.3); Hematocrit 45.7 % (39.6-49.0); Lymphocytes % 6.5 % (15.3-44.8); MCH 31.1 pg (27.0-35.0); MCV 93.1 fL (80-100); MPV 9.6 fL (7.6-11.3); Monocytes % 7.9 % (3.3-12.3); RBC Red Blood Cell Count 4.91 M/uL (4.33-5.43)
[2017-11-02 23:02] LABS: Potassium 4.3 mmol/L (3.5-5.1)
--- NOTE | 2017-11-03 01:56 | CON ---
Date of Consultation: 11/02/2017 Reason For Consultation: Elevated BUN, creatinine, rhabdomyolysis. History Of Present Illness: This is a 67-year-old gentleman with significant past medical history of hypertension, hyperlipidemia, diabetes complicated with neuropathy, no nephropathy, no retinopathy. The patient was in his regular state of health, came to the hospital complaining of fever and shortn ess of breath after being working outside. The patient had dizziness and syncope. When he presented to the emergency room found to have severe leukocytosis with elevated CK and possible pneumonia, sup ported with the CT finding. He also found to have positive for strep. The patient admitted to the I and start hydration, kidney function get worse, creatinine lies from 1.6 to 3. Reviewing the [address] for the patient, the patient denied taking any nonsteroidal on regular basis, denied any IV contra st. The patient had some nocturia, but no frequency, no recent exposure to antibiotic. The patient was started on IV hydration, his urine still acidotic. Past Medical History: Include: 1.Hypertension. 2.Hyperlipidemia. 3.Diabetes. Past Surgical History: Include tonsillectomy. Family History: Positive for diabetes. Social History: Denies smoking, denies drinking, denies drugs abuse. Home Medications: Include: 1.Amlodipine. 2.Fenofibrate. 3.Lisinopril, hydrochlorothiazide. 4.Metoprolol. 5.Niacin. 6.Pioglitazone with metformin. Review of Systems: Head and Neck: No red eye. No ear pain. GI: No nausea, no vomiting. : No polyuria, no dysuria, no hematuria. INFANT CAREGIVER: Not applicable. Respiratory: No shortness of breath. Cardiovascular: Has edema, has lightheaded. Musculoskeletal: Generalized body ache. Neuro: Has weakness. Skin: No rash. Physical Examination: Vital Signs: When I saw the patient today, blood pressure more stable 144/98, pulse of 98. Chest: Clear to auscultation. Heart: S1, S2. Regular. Abdomen: Soft, nontender, obese. Extremity: +1 edema. Laboratory Data: On admission, sodium 139, potassium 3.5, bicarb 23, BUN 22, creatinine 1.6, GFR of 43, lactic acid of 4.9, BNP 1029, TSH 1.4. Repeated lab data CK show elevation of 14,000, lactic aci d improving, troponin 0.6, TSH 1.4. Repeated CK elevated to 19,000. Sodium 137, potassium 4.3, bica rb 25, BUN 37, creatinine 3, calcium 8.6, magnesium 1.8. Urinalysis; specific gravity less than 1.00 5, blood +3, +1 protein, protein creatinine 1.3. Urine drug screen was negative for all. Assessment And Plan: 1.Acute kidney injury. Proteinuric, nonnephrotic, normal-sized kidney 13.7/13.5, nonobstructing sec ondary to rhabdomyolysis. Superimposed with NORBERT inhibitor and hydrochlorothiazide and metformin. No noliguric. No hyperkalemia or acidosis. I am going to change the bicarb drip to half-normal with 03/09, continue to run it at 150 and we will monitor the patient. Given the acute kidney injury and pn eumonia, I am going to send for urine Legionella to rule out any atypical pneumonia. 2.Strep pneumonia. Continue current antibiotic, dose adjusted. We will follow up vanc trough. 3.Hypokalemia, marginal. We will watch given the worsening kidney function. 4.Hypertension. Given the acute kidney injury and just recovered from septic shock, I am going to h old on resuming any blood pressure medication especially lisinopril and hydrochlorothiazide and we wi ll follow up. 5.Rhabdomyolysis with acute kidney injury. Continue aggressive hydration. We will continue bicarb drip. Goal for alkaline urine to be above 6.5 pH. 6.Hypomagnesemia. We will supplement. Thank you Dr. Ladd for allowing us to participate in the care of your patient. ALEXSANDER/CATIE Voice ID: [id number] Report ID: [id number]
[2017-11-03] MEDS: NACHLORIDE 0.45% 1,000 ML with NA BICARB 8.4% 75 MEQ IV SCH ×6 (02:47→10:06)
[2017-11-03 05:45] LABS: Absolute Lymphocytes (CBC) 0.7 K/uL (0.7-4.9); Absolute Monocytes 1.1 K/uL (0.1-1.3); Absolute Neutrophil 10.1 K/uL (1.8-8.0); Basophils % 0.1 % (0-1.3); Hematocrit 43.9 % (39.6-49.0); Lymphocytes % 6.2 % (15.3-44.8); MCH 31.4 pg (27.0-35.0); MCV 93.6 fL (80-100); MPV 9.4 fL (7.6-11.3); Monocytes % 9.4 % (3.3-12.3); RBC Red Blood Cell Count 4.69 M/uL (4.33-5.43)
--- NOTE | 2017-11-03 06:13 | PN ---
Date of Progress Note: 11/02/2017 History Of Present Illness: Mr. Burgos was admitted on 11/01/[address] Parkinson saw him on 11/01/2017. He had a CPK of 14,000 secondary to rhabdomyolysis. White count of almost 20,000. Creatinine 1.6. The patient's present regimen includes Norvasc, fenofibrate, niacin, metoprolol, lis inopril, and hydrochlorothiazide. His niacin has been held. Fenofibrate has been held. He is now o n antibiotics. Echocardiogram is normal. Stress test is also pending. I think Mr. Burgos's main issue is rhabdomyolysis and pneumonia and not a cardiac issue. We will see what the stress test shows, but we will sign off his case. Otherwise, we will continue present regim en. ADRIANNA/CATIE Voice ID: [id number] Report ID: [id number]
[2017-11-03 06:19] LABS: Albumin 2.8 g/dL (3.4-5.0); Magnesium 2.5 mg/dL (1.8-2.4); Phosphorus 4.6 mg/dL (2.5-4.9); Potassium 3.9 mmol/L (3.5-5.1)
[2017-11-03] MEDS: PANTOPRAZOLE 40MG TABLET PO SCH (07:00)
[2017-11-03] MEDS: ONDANSETRON 4 MG/2 ML VIAL IV PRN ×3 (07:00→18:12)
[2017-11-03] MEDS: INSULIN -REGULAR HUMAN 50 UNIT/0.5 ML ML SQ SCH ×4 (07:30→22:44)
--- NOTE | 2017-11-03 07:38 | RAD REPORT ---
EXAM DESCRIPTION: Nancy Single View11/03/2017 6:47 am CLINICAL HISTORY: Shortness of breath COMPARISON: November 02, 2017 FINDINGS: The lungs appear clear of acute infiltrate. The heart is mildly enlarged IMPRESSION: No acute abnormalities displayed
[2017-11-03] MEDS: CEFTRIAXONE/SWI 1gm 1 GM/10 ML SYR IV SCH (08:54)
[2017-11-03] MEDS: ASPIRIN EC 81 MG TAB PO SCH (08:55)
[2017-11-03] MEDS ORDERED: Levofloxacin 250mg IV 250 MG/50 ML BAG IV SCH (09:00)
--- NOTE | 2017-11-03 10:18 | RAD REPORT ---
EXAM DESCRIPTION: US - EXTREM VENOUS W COMPRESS OVI - 11/03/2017 10:11 am CLINICAL HISTORY: r/o DVT, redness and warmth<Reason For Exam>r/o DVT, redness and warmth COMPARISON: No comparisons<Comparisons> TECHNIQUE: Real-time sonographic evaluation of the bilateral lower extremity common femoral, superfi cial femoral, popliteal and posterior tibial veins was performed. FINDINGS: Normal compressibility, flow augmentation, phasic flow and spontaneous flow are identified in the left and right lower extremity common femoral, superficial femoral, popliteal and posterior t ibeal veins. No intraluminal filling defects seen. Exam was technically limited due to body habitus. IMPRESSION: No DVT in either lower extremity.
[2017-11-03 13:31] LABS: Urine Appearance CLEAR; Urine Bilirubin NEGATIVE (NEG); Urine Blood 2+ (NEG); Urine Color YELLOW; Urine Glucose NEGATIVE (NEG); Urine Protein TRACE (NEG); Urine Urobilinogen 0.2 mg/dL (0.2-1.0)
[2017-11-03 13:49] LABS: Urine Microscopic Reflex ORDER UMIC
[2017-11-03 14:03] LABS: Urine Bacteria 20-50 /HPF (NONE SEEN); Urine Culture Reflex Order REFLEXED
[2017-11-03] MEDS: D5W 1,000 ML with NA BICARB 8.4% 150 MEQ IV SCH ×2 (15:36)
--- NOTE | 2017-11-03 18:01 | P.PN ---
Subjective Date of Service: 11/03/17 Primary Care Provider: Dr. Da Silva Chief Complaint: Fever and loss of balance pt seen and examined at bedside with RN. Chart reviewed. Case discussed with pulmonology at this time. -no complaints to offer overnight. Yesterday patient was not able to be transferred to the floor as he got short of breath and had nausea and vomiting. Nephrology was consulted yesterday on the patient. This morning patient feels much better than before. Has been doing well. Denies having any chest pain shortness of breath. Does complain of having some intermittent nausea but much control than before. Review of Systems 10-point ROS is otherwise unremarkable Physical Examination - Vital Signs Temperature: 98.6 F Blood Pressure: 139/69 Pulse: 90 Respirations: 18 Pulse Ox (%): 92 - Physical Exam General: Alert, In no apparent distress HEENT: Atraumatic, PERRLA, EOMI Neck: Supple, JVD not distended Respiratory: Clear to auscultation bilaterally, Normal air movement Cardiovascular: Regular rate/rhythm, Normal S1 S2 Gastrointestinal: Normal bowel sounds, No tenderness Musculoskeletal: No tenderness Integumentary: No rashes Neurological: Normal speech, Normal tone, Normal affect Lymphatics: No axilla or inguinal lymphadenopathy - Studies Medications List Reviewed: Yes Assessment And Plan - Current Problems (Diagnosis) (1) Severe sepsis Onset Date: 11/02/17 Current Visit: Yes Status: Resolved (2) Streptococcus infection, group A Onset Date: 11/02/17 Current Visit: Yes Status: Acute (3) Rhabdomyolysis Current Visit: Yes Status: Resolved Qualifiers: Rhabdomyolysis type: traumatic Encounter type: initial encounter Qualified Code(s): T79.6XXA - Traumatic ischemia of muscle, initial encounter (4) Acute renal injury due to sepsis Onset Date: 11/02/17 Current Visit: Yes Status: Acute (5) Diabetes mellitus Onset Date: 11/02/17 Current Visit: Yes Status: Chronic Qualifiers: Diabetes mellitus type: type 2 Diabetes mellitus retirement insulin use: without parts counterman use Diabetes mellitus complication status: with other specified complication Qualified Code(s): E11.69 - Type 2 diabetes mellitus with other specified complication (6) Hypertension Onset Date: 11/02/17 Current Visit: Yes Status: Chronic Qualifiers: Hypertension type: essential hypertension Qualified Code(s): I10 - Essential (primary) hypertension (7) CAD (coronary artery disease) Onset Date: 11/02/17 Current Visit: Yes Status: Suspected Qualifiers: Coronary Disease-Associated Artery/Lesion type: [place] artery [place] vs. transplanted heart: [place] heart Associated angina: without angina Qualified Code(s): I25.10 - Atherosclerotic heart disease of [place] coronary artery without angina pectoris (8) CHF (congestive heart failure) Onset Date: 11/02/17 Current Visit: Yes Status: Suspected Qualifiers: Heart failure type: unspecified Heart failure chronicity: unspecified Qualified Code(s): I50.9 - Heart failure, unspecified - Plan #1 Severe sepsis: Strep A rapid screen was positive. Blood cultures remain negative at the moment. CXR shows no acute infiltrate, he has had some productive cough with clear secretions. So far no clear source of infection. He remain afebrile. Continue empiric treatment with Vancomycin and PO PCN #2 rhabdomyolysis: CK continue increasing. He is on IV fluids. Patient Registration Representative consulted. Appreciate Reccs. Doing well overall. #3 acute renal injury: as above, continue IV fluids #4 Left leg desquamative wound: consult wound care. Dispo: will transfer the patient to medical floor. Discharge Plan: Home Plan to discharge in: 48 Hours - Code Status/Comfort Care Code Status Assessed: Yes Critical Care: No
[2017-11-03] MEDS: PENICILLIN V K 250 MG TABLET PO SCH (22:44)
[2017-11-04] MEDS: D5W 1,000 ML with NA BICARB 8.4% 150 MEQ IV SCH ×4 (02:00→14:00)
--- NOTE | 2017-11-04 02:47 | PN ---
Date of Progress Note: 11/03/2017 Subjective: The patient was admitted with rhabdo and acute kidney injury. The patient was placed on bicarb drip. His urine output has been improved. Physical Examination: Vital Signs: Blood pressure 164/77, pulse of 98, afebrile. The patient had good urine output, multiple voiding. Chest: Clear to auscultation. Heart: S1, S2. Regular. Abdomen: Soft, nontender, morbidly obese. Extremities: +1 edema. Erythema with the dressing on the left leg. Laboratory Data: WBC 12, H and H 14.7/43.9, platelets of 200. Sodium 141, potassium 4.9, bicarb 28, BUN 44, GFR of 16, calcium 8.5, phosphorus 4.6, magnesium 2.5. CK down to 1700, albumin 2.8. Medications: Current medications the patient on its include: 1. Aspirin. 2. Penicillin. 3. Vancomycin. 4. Zofran. 5. Pantoprazole. 6. Bicarb drip 1.5 amp half-normal. Assessment And Plan: 1. Acute kidney injury, possible secondary to rhabdomyolysis. Given the lack of improvement even with the improvement on the Ck , I am going to change the bicarb to higher concentration to establish better alkalosis to the urine as the urine pH is still below 6.5. We will put the patient on bicarb drip of concentration 150 mEq and we will continue hydration. 2. Giving the incident of the rhabdomyolysis with the acute kidney injury and his urinalysis has some hematuria, autoimmune disease needs to be ruled out. I am going to go ahead and send for full serology to rule out any autoimmune disease causing his rhabdomyolysis and his renal failure and we will follow up. 3. Hypertension, uncontrolled. We will add calcium channel silverio. 4. Rhabdomyolysis. As above continue hydration. We will send for serology to rule out any autoimmune disease. 5. Hypokalemia has been resolved. 6. Pneumonia. Continue current antibiotic. We will send for Legionella antibody. ALEXSANDER/CATIE Voice ID: [id number] Report ID: [id number] NOEL
[2017-11-04] MEDS: PANTOPRAZOLE 40MG TABLET PO SCH (05:26)
[2017-11-04] MEDS: ACETAMINOPHEN 500 MG TAB PO PRN (05:26)
[2017-11-04 06:07] LABS: Absolute Lymphocytes (CBC) 1.3 K/uL (0.7-4.9); Absolute Monocytes 1.2 K/uL (0.1-1.3); Basophils % 0.7 % (0-1.3); Eosinophils % 0.9 % (0-4.4); Hematocrit 43.1 % (39.6-49.0); Lymphocytes % 11.9 % (15.3-44.8); MCH 31.5 pg (27.0-35.0); MCV 93.9 fL (80-100); MPV 9.2 fL (7.6-11.3); Monocytes % 11.4 % (3.3-12.3); RBC Red Blood Cell Count 4.59 M/uL (4.33-5.43)
[2017-11-04 06:17] LABS: Albumin 2.8 g/dL (3.4-5.0); Magnesium 2.4 mg/dL (1.8-2.4); Phosphorus 4.1 mg/dL (2.5-4.9); Potassium 3.8 mmol/L (3.5-5.1)
[2017-11-04] MEDS: INSULIN -REGULAR HUMAN 50 UNIT/0.5 ML ML SQ SCH ×4 (07:30→20:48)
[2017-11-04] MEDS: ASPIRIN EC 81 MG TAB PO SCH (08:21)
[2017-11-04] MEDS: PENICILLIN V K 250 MG TABLET PO SCH ×2 (08:21→20:47)
[2017-11-04 10:00] LABS: Rheumatoid Factor NEG (NEG)
--- NOTE | 2017-11-04 14:07 | P.PN ---
Subjective Date of Service: 11/04/17 Primary Care Provider: Dr. Da Silva Chief Complaint: Fever and loss of balance pt seen and examined at bedside with RN. Chart reviewed. Case discussed with pulmonology at this time. -no complaints to offer overnight. -This morning patient feels much better than before. Has been doing well. -Denies having any chest pain shortness of breath. Review of Systems 10-point ROS is otherwise unremarkable Physical Examination - Vital Signs Temperature: 98.0 F Blood Pressure: 136/76 Pulse: 83 Respirations: 18 Pulse Ox (%): 96 - Physical Exam General: Alert, In no apparent distress, Oriented x3 HEENT: Atraumatic, PERRLA, EOMI Neck: Supple, JVD not distended Respiratory: Normal air movement, Crackles/rales Cardiovascular: Regular rate/rhythm, Normal S1 S2 Gastrointestinal: Normal bowel sounds, No tenderness Musculoskeletal: No tenderness Integumentary: Tenderness/swelling, Erythema, Warmth Neurological: Normal speech, Normal tone, Normal affect Lymphatics: No axilla or inguinal lymphadenopathy - Studies Medications List Reviewed: Yes Assessment And Plan - Current Problems (Diagnosis) (1) ANGELA (acute kidney injury) Current Visit: Yes Status: Acute (2) Streptococcus infection, group A Onset Date: 11/02/17 Current Visit: Yes Status: Acute (3) Severe sepsis Onset Date: 11/02/17 Current Visit: Yes Status: Resolved (4) Rhabdomyolysis Current Visit: Yes Status: Resolved Qualifiers: Rhabdomyolysis type: traumatic Encounter type: initial encounter Qualified Code(s): T79.6XXA - Traumatic ischemia of muscle, initial encounter (5) Diabetes mellitus Onset Date: 11/02/17 Current Visit: Yes Status: Chronic Qualifiers: Diabetes mellitus type: type 2 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 vs. transplanted heart: [place] heart Associated angina: without angina Qualified Code(s): I25.10 - Atherosclerotic heart disease of [place] coronary artery without angina pectoris - Plan #1 Severe sepsis: Strep A rapid screen was positive. Blood cultures and other culture remain negative at the moment. CXR shows no acute infiltrate. Currently on PO PCN and Vanc. Can DC vanc today. #2 rhabdomyolysis: CK continue increasing. He is on IV fluids. Health Safety Manager consulted. Appreciate Reccs. Doing well overall. #3 acute renal injury: Improving slowly. IV fluids with bicarb. Nephrology consulted. appreciate Reccs #4 Left leg desquamative wound: consult wound care. Dispo: Awaiting clinical improvement with Kidney function. Ambulation with PT. Wean Oxygen as tolerated. DC vanc today. Anticipate DC in 24 to 48 hrs. Discharge Plan: Home Plan to discharge in: 24 Hours - Code Status/Comfort Care Code Status Assessed: Yes Critical Care: No
[2017-11-04] MEDS ORDERED: FUROSEMIDE 40 MG/4 ML VIAL IV ONE (21:52)
[2017-11-04] MEDS ORDERED: POTASSIUM CL SA 10 MEQ TAB PO ONE (21:53)
[2017-11-04] MEDS: NA CHLORIDE 0.9% 1,000 ML IV SCH (22:12)
[2017-11-05] MEDS: ACETAMINOPHEN 500 MG TAB PO PRN (00:50)
--- NOTE | 2017-11-05 02:26 | PN ---
Date of Progress Note: 11/04/2017 Chief Complaint: Acute kidney injury. History Of Present Illness: Acute kidney injury, severe, nonoliguric, associated with rhabdomyolysis. Renal function has not improved significantly over the last 24 hours. The patient remains on IV fluids for treatment of rhabdomyolysis. Review of Systems: The patient denies fever or chills. Physical Examination: Lungs: Clear to auscultation bilaterally. Heart: S1, S2 Abdomen: Soft, benign. Extremities: Minimal edema. Laboratory Work: Creatinine 3.4, sodium 144, potassium 3.8, chloride 104, CO2 of 35, calcium 8.3, phosphorus 4.1. Impression And Plan: 1. Rhabdomyolysis. The patient will continue IV fluids. Adjust IV fluids according to lab work. 2. Metabolic alkalosis. Plan is to stop sodium bicarbonate drip and switch to normal saline. 3. Hypertension. Blood pressure in acceptable control. Avoid NORBERT inhibitor. 4. Electrolyte abnormalities. Potassium level at this point is controlled. Monitor potassium level and adjust replacement as needed. 5. Hypoalbuminemia. The patient had a screen for proteinuria done, it showed nonnephrotic proteinuria. Serology tests are pending in view of microscopic hematuria and proteinuria. I spent total 36 min including 26 min to coordinate care plan. NIKO/CATIE Voice ID: [id number] Report ID: [id number] NOEL
[2017-11-05] MEDS: PANTOPRAZOLE 40MG TABLET PO SCH (05:37)
[2017-11-05] MEDS: NA CHLORIDE 0.9% 1,000 ML IV SCH ×3 (05:38→20:20)
[2017-11-05 06:44] LABS: Albumin 2.8 g/dL (3.4-5.0); Magnesium 2.3 mg/dL (1.8-2.4); Phosphorus 3.9 mg/dL (2.5-4.9); Potassium 3.8 mmol/L (3.5-5.1)
[2017-11-05 06:47] LABS: Absolute Lymphocytes (CBC) 1.4 K/uL (0.7-4.9); Absolute Monocytes 1.2 K/uL (0.1-1.3); Absolute Neutrophil 6.9 K/uL (1.8-8.0); Basophils % 0.6 % (0-1.3); Eosinophils % 3.8 % (0-4.4); Hematocrit 43.2 % (39.6-49.0); Lymphocytes % 13.8 % (15.3-44.8); MCH 31.8 pg (27.0-35.0); MCV 93.7 fL (80-100); MPV 9.1 fL (7.6-11.3); Monocytes % 12.2 % (3.3-12.3); RBC Red Blood Cell Count 4.62 M/uL (4.33-5.43)
[2017-11-05] MEDS: INSULIN -REGULAR HUMAN 50 UNIT/0.5 ML ML SQ SCH ×4 (07:30→20:40)
[2017-11-05] MEDS ORDERED: FUROSEMIDE 40 MG/4 ML VIAL IV SCH (09:00)
[2017-11-05] MEDS: ASPIRIN EC 81 MG TAB PO SCH (12:38)
[2017-11-05] MEDS: PENICILLIN V K 250 MG TABLET PO SCH ×2 (12:39→20:20)
--- NOTE | 2017-11-05 15:42 | P.PN ---
Subjective Date of Service: 11/05/17 Primary Care Provider: Dr. Da Silva Chief Complaint: Fever and loss of balance pt seen and examined at bedside with RN. Chart reviewed. Case discussed with pulmonology and nephrology at this time. -no complaints to offer overnight. -This morning patient feels much better than before. Has been doing well. -Denies having any chest pain shortness of breath. Review of Systems General: As per HPI Physical Examination - Vital Signs Temperature: 98 F Blood Pressure: 157/87 Pulse: 89 Respirations: 20 Pulse Ox (%): 94 - Physical Exam General: Alert, In no apparent distress HEENT: Atraumatic, PERRLA, EOMI Neck: Supple, JVD not distended Respiratory: Clear to auscultation bilaterally, Normal air movement Cardiovascular: Regular rate/rhythm, Normal S1 S2 Gastrointestinal: Normal bowel sounds, No tenderness Musculoskeletal: No tenderness Integumentary: No rashes Neurological: Normal speech, Normal tone, Normal affect Lymphatics: No axilla or inguinal lymphadenopathy - Studies Medications List Reviewed: Yes Assessment And Plan - Current Problems (Diagnosis) (1) ANGELA (acute kidney injury) Current Visit: Yes Status: Acute (2) Streptococcus infection, group A Onset Date: 11/02/17 Current Visit: Yes Status: Acute (3) Severe sepsis Onset Date: 11/02/17 Current Visit: Yes Status: Resolved (4) Rhabdomyolysis Current Visit: Yes Status: Resolved Qualifiers: Rhabdomyolysis type: traumatic Encounter type: initial encounter Qualified Code(s): T79.6XXA - Traumatic ischemia of muscle, initial encounter (5) Diabetes mellitus Onset Date: 11/02/17 Current Visit: Yes Status: Chronic Qualifiers: Diabetes mellitus type: type 2 Diabetes mellitus manager intermediate insulin use: without usp use Diabetes mellitus complication status: with other specified complication Qualified Code(s): E11.69 - Type 2 diabetes mellitus with other specified complication (6) Hypertension Onset Date: 11/02/17 Current Visit: Yes Status: Chronic Qualifiers: Hypertension type: essential hypertension Qualified Code(s): I10 - Essential (primary) hypertension (7) CAD (coronary artery disease) Onset Date: 11/02/17 Current Visit: Yes Status: Chronic Qualifiers: Coronary Disease-Associated Artery/Lesion type: [place] artery [place] vs. transplanted heart: [place] heart Associated angina: without angina Qualified Code(s): I25.10 - Atherosclerotic heart disease of [place] coronary artery without angina pectoris - Plan #1 Severe sepsis: Now resolved. Strep A rapid screen was positive. Blood cultures and other culture remain negative at the moment. CXR shows no acute infiltrate. Currently on PO PCN. #2 rhabdomyolysis: CK improved. He is on IV fluids. Nephrology consulted. Appreciate Reccs. Doing well overall. #3 acute renal injury: Improving slowly. IV fluids. Nephrology consulted. appreciate Reccs. Concern for autoimmune if no signigicant improvement. Serology is pending at this time. Will f.u with results. #4 Left leg desquamative wound: consult wound care. Dispo: Awaiting clinical improvement with Kidney function. Ambulation with PT. Anticipate DC in 24 to 48 hrs if serology back. Discharge Plan: Home Plan to discharge in: 48 Hours - Code Status/Comfort Care Code Status Assessed: Yes Critical Care: No
[2017-11-05] MEDS ORDERED: VANCOMYCIN 2 GM in NA CHLORIDE 0.9% 500 ML IVPB SCH (21:00)
--- NOTE | 2017-11-06 04:14 | PN ---
Date of Progress Note: 11/05/2017 Subjective: The patient was admitted with rhabdomyolysis, acute kidney injury. Rhabdomyolysis impro juvenal significantly, but the patient's kidney function still not improved. The patient denies any kidn ey problem before. Physical Examination: Vital Signs: Blood pressure 156/84, pulse of 80, afebrile. Chest: Decreased entry bilateral base. Heart: S1, S2. Regular. Abdomen: Soft, nontender. Extremities: +1 edema. Venous stasis, bilateral with ulcer on the left leg. Laboratory Data: WBC 9.9, H and H 14.7/43.3, platelets 222. Sodium 144, potassium 3.8, bicarb 36, B UN 45, creatinine 3.2, GFR of 20, calcium 8.4, phosphor 3.9, magnesium 2.3. Current Medications: The patient on include: 1.IV fluid. 2.Insulin. 3.Aspirin. 4.Tylenol. 5.Pantoprazole. 6.Tramadol. Assessment And Plan: 1.Acute kidney injury secondary to rhabdomyolysis, questionable of autoimmune disease causing myosit is and nephritis, slightly on the wet side. I am going to start diuresing the patient and will follo w up. If serology came positive, the patient will need kidney biopsy. 2.Hypertension, controlled optimal, continue current medication. 3.Rhabdomyolysis, possible myositis secondary to autoimmune disease, will follow up serology. 4.Hypokalemia, hypomagnesemia, status post supplement, resolved. TRAVIS Voice ID: [id number] Report ID: [id number]
[2017-11-06] MEDS: PANTOPRAZOLE 40MG TABLET PO SCH (05:36)
[2017-11-06] MEDS: NA CHLORIDE 0.9% 1,000 ML IV SCH (05:37)
[2017-11-06 06:07] LABS: Albumin 2.8 g/dL (3.4-5.0); Magnesium 2.1 mg/dL (1.8-2.4); Phosphorus 3.3 mg/dL (2.5-4.9); Potassium 3.8 mmol/L (3.5-5.1)
[2017-11-06 06:08] LABS: Absolute Lymphocytes (CBC) 1.4 K/uL (0.7-4.9); Absolute Monocytes 1.4 K/uL (0.1-1.3); Absolute Neutrophil 7.3 K/uL (1.8-8.0); Basophils % 0.8 % (0-1.3); Eosinophils % 5.4 % (0-4.4); Hematocrit 43.5 % (39.6-49.0); Lymphocytes % 12.7 % (15.3-44.8); MCH 31.7 pg (27.0-35.0); MCV 93.4 fL (80-100); Monocytes % 12.9 % (3.3-12.3); RBC Red Blood Cell Count 4.66 M/uL (4.33-5.43)
[2017-11-06] MEDS: INSULIN -REGULAR HUMAN 50 UNIT/0.5 ML ML SQ SCH ×2 (07:30→11:30)
[2017-11-06] MEDS: PENICILLIN V K 250 MG TABLET PO SCH (09:00)
[2017-11-06] MEDS ORDERED: FUROSEMIDE 40 MG/4 ML VIAL IV SCH (09:00)
[2017-11-06] MEDS: ASPIRIN EC 81 MG TAB PO SCH (09:00)
[2017-11-06 11:01] LABS: HIV 1/2 Antibody Diff Not indicated.; HIV AG/AB 4TH GEN Non-reactive (Non-reactive)
[2017-11-06 12:16] LABS: Hepatitis C Virus RNA (PCR)log <1.18 log IU/mL
--- NOTE | 2017-11-06 13:35 | P.DS ---
Admission Date: 11/01/17 Discharge Date: 11/06/17 Primary Care Provider: Dr. Da Silva Disposition: ROUTINE DISCHARGE Discharge Condition: GOOD Reason for Admission: Fever and loss of balance Consultations: Nephrology Pulmonology - Problems (1) ANGELA (acute kidney injury) Current Visit: Yes Status: Acute (2) Streptococcus infection, group A Onset Date: 11/02/17 Current Visit: Yes Status: Acute (3) Severe sepsis Onset Date: 11/02/17 Current Visit: Yes Status: Resolved (4) Rhabdomyolysis Current Visit: Yes Status: Resolved Qualifiers: Rhabdomyolysis type: traumatic Encounter type: initial encounter Qualified Code(s): T79.6XXA - Traumatic ischemia of muscle, initial encounter (5) Diabetes mellitus Onset Date: 11/02/17 Current Visit: Yes Status: Chronic Qualifiers: Diabetes mellitus type: type 2 Diabetes mellitus assisted insulin use: without terminal supervisor use Diabetes mellitus complication status: with other specified complication Qualified Code(s): E11.69 - Type 2 diabetes mellitus with other specified complication (6) Hypertension Onset Date: 11/02/17 Current Visit: Yes Status: Chronic Qualifiers: Hypertension type: essential hypertension Qualified Code(s): I10 - Essential (primary) hypertension (7) CAD (coronary artery disease) Onset Date: 11/02/17 Current Visit: Yes Status: Chronic Qualifiers: Coronary Disease-Associated Artery/Lesion type: [place] artery [place] vs. transplanted heart: [place] heart Associated angina: without angina Qualified Code(s): I25.10 - Atherosclerotic heart disease of [place] coronary artery without angina pectoris Brief History of Present Illness: 67-year-old male presented to the ER with fever, shortness of breath. Patient reports fever, chills and shortness of breath since last night. Today he felt very weak and had no energy. He denied any nausea, vomiting, diarrhea or chest pain. He is still extremely bad. Patient tells lightheaded and dizzy fall but no syncopal episode was noted. Patient came to the ER for evaluation. In the ER patient found have low blood pressures. White count elevated at 19.6. Pro calcitonin unremarkable but lactic acid was 4.9. Sodium 139, potassium 3.5, BUN 22, 21.6 with a GFR 43. Glucose 232. CK of 615. CK MB 4.2. Troponin 0.18 with a BNP of 1028. Chest x-ray appeared to show pneumonia. CT scan showed no evidence of pneumonia. He was positive for strep. Patient admitted for sepsis. When I evaluated patient in ER, blood pressures were low. Patient required oxygen due to hypoxia. Patient did not appear in any respiratory failure. Patient is stable at this time. Patient giving IV fluid boluses. Patient with history of hypertension, diabetes, hyperlipidemia. He is morbidly obese. He reports that he no longer drinks alcohol. He does not smoke. Hospital Course: Overall during the hospital stay patient remained stable Patient was initially admitted to the hospital for severe sepsis was found to be hemodynamically unstable. Was started on fluids and IV antibiotics. Blood culture urine culture x-rays and other cultures were done. Patient had throat culture positive for strep A no other source of infarction was noted. Patient continued to be on IV antibiotics for possible pneumonia as well on the chest x- ray. Patient had marked improvement in his symptoms. Of note patient also was found to be in rhabdomyolysis along with acute kidney injury. Mostly likely secondary to sepsis. Patient was kept on IV fluids. Cardiology, pulmonology, nephrology was consulted. Nephrology recommended the patient be continued on IV fluids and bicarbonate drip for his a KI most likely secondary to rhabdo. Patient had improvement in his a KI and thus bicarb was stopped and IV fluids were stopped eventually as well. Patient on a repeat x-ray did not have any pneumonia at the white count steadily declined lactic acid steadily declined as well. Patient then was discharged home under stable condition once his he was hemodynamically stable. Patient was sent home on p.o. penicillin for his strep A in the throat. And patient was also prescribed Lasix for his volume overload. Patient was asked to stop taking his losartan and hydrochlorothiazide , niacin and fenofibrate which might have caused him to have rhabdomyolysis and acute kidney injury. Patient was asked to continue taking his amlodipine and Lopressor. Patient was asked to follow up with nephro and PCP in about 2 weeks post discharge. Vital Signs/Physical Exam: Temp Pulse Resp BP Pulse Ox 97.5 F 70 17 150/70 H 92 11/06/17 04:00 11/06/17 09:00 11/06/17 04:00 11/06/17 09:00 11/06/17 04:00 General: Alert, In no apparent distress HEENT: Atraumatic, PERRLA, EOMI Neck: Supple, JVD not distended Respiratory: Clear to auscultation bilaterally, Normal air movement Cardiovascular: Regular rate/rhythm, Normal S1 S2 Gastrointestinal: Normal bowel sounds, No tenderness Musculoskeletal: No tenderness Integumentary: No rashes Neurological: Normal speech, Normal tone, Normal affect Lymphatics: No axilla or inguinal lymphadenopathy Laboratory Data at Discharge: WBC 10.8 K/uL (4.3-10.9) 11/06/17 05:28 Hgb 14.8 g/dL (13.6-17.9) 11/06/17 05:28 Hct 43.5 % (39.6-49.0) 11/06/17 05:28 Plt Count 217 K/uL (152-406) 11/06/17 05:28 Sodium 142 mmol/L (136-145) 11/06/17 05:28 Potassium 3.8 mmol/L (3.5-5.1) 11/06/17 05:28 BUN 38 mg/dL (7-18) H 11/06/17 05:28 Creatinine 2.60 mg/dL (0.55-1.3) H 11/06/17 05:28 Glucose 126 mg/dL (74-106) H 11/06/17 05:28 Phosphorus 3.3 mg/dL (2.5-4.9) 11/06/17 05:28 Magnesium 2.1 mg/dL (1.8-2.4) 11/06/17 05:28 Troponin I 0.13 ng/mL (0.0-0.045) H 11/02/17 22:17 Triglycerides 126 mg/dL (<150) 11/02/17 05:12 Cholesterol 138 mg/dL (<200) 11/02/17 05:12 HDL Cholesterol 36 mg/dL (40-60) L 11/02/17 05:12 Cholesterol/HDL Ratio 3.83 11/02/17 05:12 Home Medications: Amlodipine [Norvasc] 5 mg PO DAILY 11/01/17 Fenofibrate,Micronized [Fenofibrate] 1 tab PO DAILY 11/01/17 Lisinopril/Hydrochlorothiazide [Zestoretic 20-25 mg Tablet] 1 tab PO DAILY 11/01 Metoprolol Tartrate [Lopressor] 50 mg PO DAILY 11/01/17 Niacin 500 mg PO BEDTIME 11/01/17 Pioglitazone HCl/Metformin HCl [Actoplus Met 15 mg-850 mg Tab] 1 each PO BID Patient Discharge Instructions: Please f.u with Dr de león and PCP in 1 to 2 week post discharge. New medication. Penicillin V postassium 500mg BID. Hold following Home medication. Lisinopril/HCTZ. Niacin. Fenofibrate. New labs. BMP in 4 days Diet: Regular Activity: Ad fabricio Followup: Mushtaq De León MD [ACTIVE - CAN ADMIT] - 1 Week
[2017-11-06 18:58] LABS: HBsAG Nonreactive (Nonreactive)
--- NOTE | 2017-11-07 02:35 | PN ---
Date of Progress Note: 11/06/2017 Subjective: The patient doing better. No nausea. No vomiting. Kidney function has been improved. Physical Examination: Vital Signs: Blood pressure 150/70, pulse of 70. Chest: Clear to auscultation. Heart: S1, S2. Regular. Abdomen: Morbidly obese. Extremities: +1 edema. Venous stasis change bilateral legs. Laboratory Data: WBC 10.8, H and H 14.8/43.5. Sodium 140, potassium 3.8, bicarb 32, BUN 38, creatin ine 2.6, calcium 8.3, phosphor 3.3, magnesium 2.1. Current Medications: The patient on include: 1.Aspirin. 2.Lasix. 3.Morphine. 4.Pantoprazole. 5.Heparin. 6.Penicillin. 7.Tramadol. Assessment And Plan: 1.Acute kidney injury secondary to rhabdomyolysis, on the recovery, we will discontinue IV fluid, we will monitor the patient. 2.Rhabdomyolysis, questionable myositis with autoimmune acute kidney injury. Waiting for the serolo gy. We will follow up. 3.Hypertension, controlled, optimal. Continue holding losartan, Lasix for the time being. 4.Anemia of chronic kidney disease, stable. 5.Hypokalemia, hypomagnesemia, resolved. ALEXSANDER/CATIE Voice ID: [id number] Report ID: [id number]
[2017-11-09 03:30] LABS: Anti-Cardiolipin IgA Antibody <11 APL (<=11)
[2017-11-09 20:04] LABS: P-ANCA Anti-Myeloperoxidase Ab <1.0 AI (<1.0)
[2017-11-10 07:49] LABS: Scleroderma Antibody (Scl-70) <1.0 AI (<1.0)
== END 2017-11-06 16:02 | disposition home or self-care (01) | DRG 872 ==
LOC: ER 05:18 → ERHOLD 06:48 → 3RD-ICU 21:38 → 4TH 11-03 18:15
PROVIDERS: ADMIT Family Medicine; ATTEND Family Medicine
DX: A41.9 Sepsis, unspecified organism (principal); N17.9 Acute kidney failure, unspecified; E87.3 Alkalosis; L03.116 Cellulitis of left lower limb; Z68.42 Body mass index [BMI] 45.0-49.9, adult; R65.20 Severe sepsis without septic shock; M60.9 Myositis, unspecified; J02.0 Streptococcal pharyngitis; T79.6XXA Traumatic ischemia of muscle, initial encounter; I10 Essential (primary) hypertension; D63.1 Anemia in chronic kidney disease; E87.6 Hypokalemia; E83.42 Hypomagnesemia; I25.10 Atherosclerotic heart disease of native coronary artery without angina pectoris; I95.9 Hypotension, unspecified; R09.02 Hypoxemia; E78.5 Hyperlipidemia, unspecified; E66.01 Morbid (severe) obesity due to excess calories; E88.09 Other disorders of plasma-protein metabolism, not elsewhere classified; E11.40 Type 2 diabetes mellitus with diabetic neuropathy, unspecified; Z79.84 Long term (current) use of oral hypoglycemic drugs; I89.0 Lymphedema, not elsewhere classified; G47.33 Obstructive sleep apnea (adult) (pediatric); I87.2 Venous insufficiency (chronic) (peripheral); L97.521 Non-pressure chronic ulcer of other part of left foot limited to breakdown of skin; W18.30XA Fall on same level, unspecified, initial encounter; Y92.009 Unspecified place in unspecified non-institutional (private) residence as the place of occurrence of the external cause; E11.65 Type 2 diabetes mellitus with hyperglycemia; X58.XXXA Exposure to other specified factors, initial encounter
CPT/HCPCS: 36415; 71045; 71250; 76770; 80048; 80061; 80069; 80202; 80307; 81003; 81015; 82010; 82550; 82553; 82570; 82962; 83036; 83520; 83605; 83735; 83880; 83930; 83970; 84145; 84156; 84439; 84443; 84484; 85025; 86021; 86038; 86147; 86160; 86225; 86235; 86317; 86430; 86704; 86706; 87040; 87081; 87086; 87088; 87340; 87389; 87522; 93005; 93306; 93970; 96361; 96365; 96366; 96375; 99285; J0696; J1650; J1720; J2405; J2765; J3370; J3475; J7030